=== PATIENT | female | born 1945 | race Caucasian/White ===

== ENCOUNTER → 2020-07-21 | Outpatient (CLI) | payer MEDICARE, OTHER | LOC: MC.RAD 13:30 | DX: Z12.31 Encounter for screening mammogram for malignant neoplasm of breast (principal) ==

== ENCOUNTER 2021-06-14 10:04 | Inpatient (IN) | payer MEDICARE, OTHER ==
[~2021-06-14] VITALS: Ht 167.6 cm; Wt 65.9 kg
[2021-06-14 11:02] LABS: BASO % 0.5 % (0.0-2.0); EOS # 0.2 K/mm3 (0.0-0.7); EOS % 1.9 % (0.0-4.0); GRAN # 6.8 K/mm3 (1.4-6.5); GRAN % 82.6 % (42.2-75.2); HEMOGLOBIN 11.6 g/dl (12.5-16.0); LYMPH # 0.6 K/mm3 (1.2-3.4); LYMPH % 7.4 % (20.0-51.0); MEAN CELL VOLUME 90 fl (80.0-100.0); MEAN CORPUSCULAR HEMOGLOBIN 30 pg (27-31); MEAN CORPUSCULAR HGB CONC 33 g/dl (33.0-37.0); MEAN PLATELET VOLUME 9.8 fl (7.4-10.4); MONO # 0.6 K/mm3 (0.1-0.6); MONO % 7.2 % (1.7-9.3); PLATELET COUNT 227 K/mm3 (130-400); RED BLOOD COUNT 3.93 M/mm3 (4.10-5.30); REDCELL DISTRIBUTION WIDTH-CV 12.8 % (11.5-14.5)
[2021-06-14 11:05] LABS: HEMATOCRIT 35.4 % (37.0-47.0)
[2021-06-14 11:13] LABS: ALBUMIN 2.9 gm/dL (3.4-4.8); BILIRUBIN,TOTAL 0.6 mg/dL (0.2-1.2); C-REACTIVE PROTEIN 19.53 mg/dL (0.00-0.50); CALCIUM 9.2 mg/dL (8.4-10.2); CREATININE, serum 0.72 mg/dL (0.57-1.11); POTASSIUM 3.7 mmol/L (3.5-4.5); TOTAL PROTEIN 6.6 gm/dL (6.2-8.1)
[2021-06-14 13:25] VITALS: BP 102/62; PULSE 73; TEMP 98
[2021-06-14] MEDS ORDERED: ALEVE 220MG220 MG PO (13:32)
[2021-06-14] MEDS ORDERED: ALBUTEROL0.83 MG/ML IH (13:34)
[2021-06-14] MEDS ORDERED: PULMICORT0.5 MG/2 M IH (13:35)
[2021-06-14] MEDS ORDERED: TESSALON PERLE200 MG PO (13:35)
[2021-06-14 13:55] VITALS: BP 101/32; PULSE 75; TEMP 98.4
--- NOTE | 2021-06-14 14:02 | NUR ---
Patient admitted to room 308 from ED. Report recieved from ELHAM Gan. Upon initial assessment, patient requiring 2L of O2 via nasal cannula. Patient unable to take deep breaths without a persistant cough. VSS. Patient A&O. No skin issues noted. Admission paperwork completed. Medications, allergies, and pharmacy reviewed. Patient denies any pain, discomfort, or further needs at this time. Call light in reach. , Daniel, at the bedside.
[2021-06-14 16:00] VITALS: BP 107/44; PULSE 75; TEMP 97.8
--- NOTE | 2021-06-14 19:55 | NUR ---
Scheduled medications given. VSS. Patient A&O. Currently requiring 2L of O2 via nasal cannula. PRN tylenol given for a headache. Patient denies any further pain, discomfort, or further needs at this time. Call light in reach.
[2021-06-14 20:36] VITALS: BP 97/47; PULSE 87; TEMP 99.1
--- NOTE | 2021-06-14 21:50 | NUR ---
ALERT AND OX4. DENIES SOA UNLESS AMBULATING AND CONT TO HAVE COUGH. PM MEDS GIVEN. PRN DISCUSSED FOR COUGH. TYL RELIEVED KENT. POC DISCUSSED. CALL LIGHT WI REACH.
[2021-06-15] VITALS (7 sets, daily range): BP systolic 87–117; BP diastolic 33–59; PULSE 65–107; TEMP 97.7–98.7
[2021-06-15 06:26] LABS: HEMOGLOBIN 10.6 g/dl (12.5-16.0); MEAN CELL VOLUME 89 fl (80.0-100.0); MEAN CORPUSCULAR HEMOGLOBIN 30 pg (27-31); MEAN CORPUSCULAR HGB CONC 33 g/dl (33.0-37.0); MEAN PLATELET VOLUME 9.9 fl (7.4-10.4); PLATELET COUNT 225 K/mm3 (130-400); RED BLOOD COUNT 3.58 M/mm3 (4.10-5.30); REDCELL DISTRIBUTION WIDTH-CV 12.5 % (11.5-14.5)
[2021-06-15 06:46] LABS: CALCIUM 8.4 mg/dL (8.4-10.2); CREATININE, serum 0.64 mg/dL (0.57-1.11); MAGNESIUM 2.3 mg/dL (1.6-2.6)
[2021-06-15 07:44] LABS: BAND 1 % (0-10); LYMPHOCYTE 4 % (20.0-51.0); NEUTROPHILS 92 % (42.0-75.2); PLATELET ESTIMATE NORMAL (NORMAL)
--- NOTE | 2021-06-15 09:22 | NUR ---
PT SITTING UP IN BED. MORNING MEDICATIONS ADMINISTERED BY [employer] WORK[employer]. SHIFT ASSESSMENT COMPLETED. COARSE CRACKLES AUSCULTATED IN LUNGS. PT DENIES ANY PAIN EXCEPT WHEN COUGHING. STATES COUGHING IS EXACERBATED WITH TALKING. DENIES NEEDS AT THIS TIME. NS INFUSING AT 75ML/HR. EDUCATED PT ON IS USE. WILL CONTINUE TO MONITOR.
--- NOTE | 2021-06-15 10:23 | NUR ---
[place] attended clinical rounds with the team. Patient did not feel she needed PT/OT at this time. SW met with patient to discuss discharge planning. Patient lives in [place] with her , Daniel (ph#[phone]). Patient currently sees Dr. Chavez for primary care but advised she plans to change providers at time of discharge. Patient is working on getting the name of the PCP she wants to change to. Patient obtains medications from [facility] with no difficulties. Patient does not currently use home oxygen but reports she will likely need it at discharge. Patient would like to use [facility] if she needs it. Patient does not use any other DME and is independent with ADLS. Patient states she has [facility]PO[facility] which designates her as primary then Bill and Arabella Lieberman as alternates. Patient plans to return home at time of discharge. Discharge Plan: Home
--- NOTE | 2021-06-15 13:51 | NUR ---
Primary nurse was assisted with [phone] patient care by [employer] [employer] [facility] Kaleigh Ch and [employer] instructor Elena Petit MSN, RN.
[2021-06-15 16:29] LABS: PROCALCITONIN 0.15 ng/mL (0.00-0.09)
--- NOTE | 2021-06-15 16:33 | NUR ---
PT MOVED TO SURGICAL SIDE, PT VERY SOB WITH COUGH, PULSE O2 AT 84% ON RA BUT INC TO 90% ONCE COUGHING STOPPED. RT NOTIFIED, LEFT ON RA AT THIS TIME, PT STATED SHE WOULD CALL ON THE CALL LIGHT IF SOB INCREASES
--- NOTE | 2021-06-15 16:46 | NUR ---
This RN took over care of the patient from ELHAM Pruitt.
--- NOTE | 2021-06-15 19:16 | NUR ---
RECEIVED CHANGE OF SHIFT REPORT FROM DAY SHIFT RN.
--- NOTE | 2021-06-16 02:31 | NUR ---
PATIENT RESTING, BREATHING NONLABORED AND EVEN.
[2021-06-16 04:17] VITALS: BP 94/45; PULSE 72; TEMP 98.8
[2021-06-16 05:35] LABS: ARTERIAL BLD GAS O2 SATURATION 93.5 % (92-100); ARTERIAL BLOOD GAS BASE EXCESS -2.1 (-2-2); ARTERIAL BLOOD GAS PCO2 34.7 mmHg (35-45); ARTERIAL BLOOD GAS PO2 63.5 mmHg (80-100); ARTERIAL BLOOD GAS pH 7.42 (7.35-7.45)
--- NOTE | 2021-06-16 06:58 | NUR ---
CHANGE OF SHIFT REPORT GIVEN TO DAY SHIFT RNs, MARIALUISA.
[2021-06-16 08:00] VITALS: BP 100/48; PULSE 90; TEMP 98.5
[2021-06-16 11:48] VITALS: BP 109/50; PULSE 90; TEMP 100.3
--- NOTE | 2021-06-16 14:38 | NUR ---
[employer] contacted Alejandra Barlow and faxed clinical information incase patient discharges over the weekend. Discharge Plan: Home, possible home oxygen
[2021-06-16 15:25] VITALS: BP 104/52; PULSE 87; TEMP 98.9
--- NOTE | 2021-06-16 18:34 | NUR ---
Pt rested in bed after arriving to room. She reported a persistent headache caused by increased coughing. Discussed POC with patient as far as medication administration for headaches. Pt denied any chest pain/palpitations. Remains on Amio infusion. Isolation precautions in place.
--- NOTE | 2021-06-16 18:35 | NUR ---
Pt finished shift on 5L O2 via NC. Continues to have persistent cough, PRN meds administered. Pain improved with one dose of Naproxen. IVF infusing into RFA. POC discussed with her, all questions answered. Call light within reach.
[2021-06-16 19:12] LABS: C-ANCA 11 U/mL (0-99)
[2021-06-16 19:38] VITALS: BP 99/42; PULSE 99; TEMP 98
--- NOTE | 2021-06-16 20:50 | NUR ---
Pt. sitting up in bed. Pt. is A&OX3, assessment complete. IV to rt. forearm patent, IV fluids infusing per orders. Pt. requests cough syrup at this time. giving per orders. Pt. denies further needs, call light within reach.
[2021-06-16 23:54] VITALS: BP 104/56; PULSE 77; TEMP 97.8
[2021-06-17 03:40] VITALS: BP 105/53; PULSE 72; TEMP 98.2
[2021-06-17 07:30] VITALS: BP 106/64; PULSE 71; TEMP 97.9
[2021-06-17 12:05] VITALS: BP 119/56; PULSE 81; TEMP 97.5
[2021-06-17 13:33] LABS: C-REACTIVE PROTEIN 10.15 mg/dL (0.00-0.50); LACTATE DEHYDROGENASE 481 U/L (125-220)
[2021-06-17 13:42] LABS: TROPONIN-I < 0.010 ng/mL (0.00-0.033)
[2021-06-17 13:58] LABS: ANGIOTENSIN CONVERTING ENZYME 31 U/L (16 - 85)
[2021-06-17 15:56] VITALS: BP 104/49; PULSE 83; TEMP 98
[2021-06-17 19:51] VITALS: BP 108/59; PULSE 78; TEMP 98.1
--- NOTE | 2021-06-17 21:20 | NUR ---
PT IN BED. HS MEDS GIVEN INCLUDING ROBITUSSIN/CODEINE 10CC PO AT THIS TIME. HAS OXYGEN AT 10L/HI THANIA, RT IN AND PLACES PT ON 10L OXYMASK. PT HAS INT TO RFA, IV LASIX GIVEN. SPUTUM SPECIMEN COLLECTED AT THIS TIME. PT IS ALERT AND ORIENTED X4.
--- NOTE | 2021-06-17 21:25 | NUR ---
OBTAINED SPUTUM SPECIMEN, SENT TO LAB.
[2021-06-17 23:40] VITALS: BP 112/47; PULSE 95; TEMP 98.5
--- NOTE | 2021-06-18 01:19 | NUR ---
PT AWAKENED FOR IV MED AND COUGH MED. HAS BEEN USING BSC FOR LESS RESPIRATORY DISTRESS.
--- NOTE | 2021-06-18 03:30 | NUR ---
RT CHANGES PT TO 10L/HI THANIA NC FOR PT COMFORT, RB91=60-80%.
[2021-06-18 04:07] VITALS: BP 117/62; PULSE 77; TEMP 99.1
--- NOTE | 2021-06-18 05:50 | NUR ---
PT IN BED, LAYING PRONE. AWAKENED FOR SCHEDULED AM MED AND PRN COUGH SYRUP, TAKES WITHOUT PROBLEM.
[2021-06-18 08:00] VITALS: BP 93/46; PULSE 78; TEMP 96.3
[2021-06-18 12:00] VITALS: BP 105/46; PULSE 83; TEMP 97.7
[2021-06-18 15:55] VITALS: BP 108/70; PULSE 79; TEMP 99.1
[2021-06-18 19:31] VITALS: BP 120/45; PULSE 72; TEMP 98.6
--- NOTE | 2021-06-18 19:56 | NUR ---
TX GIVEN VIA MOUTHPIECE, DUONEB AND PULMICORT AFTER. TOLERATED WELL. [facility]
--- NOTE | 2021-06-18 21:00 | NUR ---
PT IN BED, HAS AIRVO AT 45L/73%, PT REPORTS BETTER BREATHING AND LESS COUGHING. TAKES HS MEDS WITHOUT PROBLEM. INT TO RFA. ARVIZU TO BSD WITH YELLOW URINE.
--- NOTE | 2021-06-18 23:00 | NUR ---
IV SOLUMEDROL GIVEN, SITE PAINFUL WITH ADMINISTRATION, REMAINS BRUISED. PT RESTING BETTER ON AIRVO.
[2021-06-18 23:29] VITALS: BP 104/51; PULSE 72; TEMP 98.6
[2021-06-19 03:37] VITALS: BP 110/57; PULSE 63; TEMP 98.2
--- NOTE | 2021-06-19 04:00 | NUR ---
PT ASKING FOR COUGH MED, ROBITUSSIN W/CODEINE GIVEN. NEW IV SITE STARTED TO LEFT HAND ON SECOND ATTEMPT. DC'D INT TO RFA, SORE AND PAINFUL.
--- NOTE | 2021-06-19 05:30 | NUR ---
SOLUMEDROL GIVEN WITHOUT COMPLAINT OF PAIN OR BURNING. LAB IN TO DRAW. GOOD URINE OUTPUT THIS SHIFT.
[2021-06-19 06:57] LABS: C-REACTIVE PROTEIN 3.32 mg/dL (0.00-0.50); CALCIUM 7.7 mg/dL (8.4-10.2); CREATININE, serum 0.63 mg/dL (0.57-1.11); MAGNESIUM 2.5 mg/dL (1.6-2.6); MEAN CELL VOLUME 89 fl (80.0-100.0); MEAN CORPUSCULAR HEMOGLOBIN 30 pg (27-31); MEAN CORPUSCULAR HGB CONC 33 g/dl (33.0-37.0); MEAN PLATELET VOLUME 10.1 fl (7.4-10.4); PLATELET COUNT 272 K/mm3 (130-400); POTASSIUM 3.7 mmol/L (3.5-4.5); RED BLOOD COUNT 3.38 M/mm3 (4.10-5.30); REDCELL DISTRIBUTION WIDTH-CV 12.8 % (11.5-14.5)
[2021-06-19 07:04] LABS: HEMATOCRIT 30.1 % (37.0-47.0)
[2021-06-19 07:48] LABS: BAND 11 % (0-10); LYMPHOCYTE 3 % (20.0-51.0); NEUTROPHILS 85 % (42.0-75.2); PLATELET ESTIMATE NORMAL (NORMAL)
[2021-06-19 08:00] VITALS: BP 101/82; PULSE 70; TEMP 98.3
[2021-06-19 12:00] VITALS: BP 120/70; PULSE 70; TEMP 98.2
[2021-06-19 15:40] VITALS: BP 108/74; PULSE 70; TEMP 98.4
--- NOTE | 2021-06-19 19:03 | NUR ---
PT EATING, REQUESTED I COME BACK LATER.
[2021-06-19 19:47] VITALS: BP 104/49; PULSE 84; TEMP 98.4
[2021-06-19 23:50] VITALS: BP 100/47; PULSE 69; TEMP 98.1
[2021-06-20 04:00] VITALS: BP 118/61; PULSE 60; TEMP 98
[2021-06-20 07:30] VITALS: BP 114/68; PULSE 58; TEMP 98.5
--- NOTE | 2021-06-20 07:30 | NUR ---
Assessment completed and documented in computer. AirVo set to 45L @ 55% - Pt tolerating well. Denies c/o dyspnea, but does have a chronic productive cough. SPO2 was noted to drop to 88-89% during conversation, but returns to normal once done speaking. SoluMedrol infusing at 250mL/hr, IV site to left hand is CDI with no signs of infiltration. No c/o or concerns at this time.
--- NOTE | 2021-06-20 09:00 | NUR ---
DR and Resp. Therapy in to see pt, AirVo is lowered to 45L @ 45% - pt is tolerating well.
[2021-06-20 09:13] LABS: MEAN CELL VOLUME 88 fl (80.0-100.0); MEAN CORPUSCULAR HGB CONC 34 g/dl (33.0-37.0); MEAN PLATELET VOLUME 9.6 fl (7.4-10.4); PLATELET COUNT 316 K/mm3 (130-400); RED BLOOD COUNT 4.15 M/mm3 (4.10-5.30); REDCELL DISTRIBUTION WIDTH-CV 12.5 % (11.5-14.5)
[2021-06-20 09:17] LABS: HEMATOCRIT 36.7 % (37.0-47.0); MEAN CORPUSCULAR HEMOGLOBIN 30 pg (27-31)
[2021-06-20 09:20] LABS: HEMOGLOBIN 12.3 g/dl (12.5-16.0)
[2021-06-20 09:30] LABS: CREATININE, serum 0.7 mg/dL (0.57-1.11); POTASSIUM 3.1 mmol/L (3.5-4.5)
[2021-06-20 09:31] LABS: BAND 6 % (0-10)
[2021-06-20 09:32] LABS: LYMPHOCYTE 3 % (20.0-51.0); NEUTROPHILS 89 % (42.0-75.2); PLATELET ESTIMATE NORMAL (NORMAL)
--- NOTE | 2021-06-20 10:07 | NUR ---
Received report from day shift. Patient alert and oriented, resting in bed. VSS. Assessment performed. Morning meds administered. Patient has a dry, unproductive cough. Camejo in place to DD. Patient denies pain at this time. Patient resting in bed with call light within reach.
[2021-06-20 11:19] VITALS: BP 87/46; PULSE 70; TEMP 98.4
--- NOTE | 2021-06-20 14:40 | NUR ---
Physician recommending placement to [facility]. Substance Abuse Therapist faxed referral packet with clinical information. PT/OT consultation requested, will be faxed over to [facility] when completed. *Discharge plan: LTAC placement pending*
[2021-06-20 15:02] VITALS: BP 98/56; PULSE 70; TEMP 97.8
--- NOTE | 2021-06-20 16:01 | NUR ---
Collaborated with hospitalist team. Patient unable to transfer to [facility] due to being on 45 L of Airvo and is unwilling to be intubated for the transfer. Hospitalist would like a referral sent to [facility]. Contact made gloria Thornton at [facility] who states that he is planning on visiting the hospital on Saturday. He will review the patient's clinical information tonight and talk more about it during his visit.
[2021-06-20 19:43] VITALS: BP 98/65; PULSE 69; TEMP 98.5
--- NOTE | 2021-06-20 19:55 | NUR ---
TX GIVEN VIA MOUTHPIECE, TOLERATED WELL. [facility] 45L/45% DECREASED TO 40L/45% AT THIS TIME.
--- NOTE | 2021-06-20 21:34 | NUR ---
PT IN BED, HAS AIRVO ON. PT REPORTS FEELING BETTER. COUGH LOOSE, ROBITUSSIN W/CODIENE GIVEN PER PT REQUEST. INT TO LEFT HAND, FLUSHES WELL. LUNGS WITH CRACKLES NOTED. ARVIZU TO BSD WITH YELLOW URINE. DENIES PAIN.
[2021-06-20 23:51] VITALS: BP 102/47; PULSE 70; TEMP 98
[2021-06-21 04:04] VITALS: BP 111/56; PULSE 81; TEMP 98.4
--- NOTE | 2021-06-21 04:18 | NUR ---
MEDICATED WITH ROBITUSSIN W/CODEINE FOR COUGH.
[2021-06-21 05:24] LABS: ARTERIAL BLD GAS O2 SATURATION 94.3 % (92-100); ARTERIAL BLD GAS TCO2 CT 30.2; ARTERIAL BLOOD GAS BASE EXCESS 6.1 (-2-2); ARTERIAL BLOOD GAS HCO3 29.1 meq/L (22-26); ARTERIAL BLOOD GAS PCO2 35.9 mmHg (35-45); ARTERIAL BLOOD GAS PO2 64.1 mmHg (80-100); ARTERIAL BLOOD GAS pH 7.53 (7.35-7.45)
[2021-06-21 06:01] LABS: HEMOGLOBIN 10.8 g/dl (12.5-16.0); MEAN CELL VOLUME 90 fl (80.0-100.0); MEAN CORPUSCULAR HEMOGLOBIN 30 pg (27-31); MEAN CORPUSCULAR HGB CONC 33 g/dl (33.0-37.0); PLATELET COUNT 298 K/mm3 (130-400); REDCELL DISTRIBUTION WIDTH-CV 12.4 % (11.5-14.5)
[2021-06-21 06:09] LABS: HEMATOCRIT 32.3 % (37.0-47.0)
[2021-06-21 06:43] LABS: C-REACTIVE PROTEIN 0.87 mg/dL (0.00-0.50); CREATININE, serum 0.66 mg/dL (0.57-1.11); POTASSIUM 3.9 mmol/L (3.5-4.5)
[2021-06-21 07:00] LABS: BAND 4 % (0-10); LYMPHOCYTE 3 % (20.0-51.0); METAMYELOCYTE 1 % (0-0); NEUTROPHILS 90 % (42.0-75.2)
[2021-06-21 07:15] VITALS: BP 129/63; PULSE 62; TEMP 98.3
[2021-06-21 07:46] LABS: PLATELET ESTIMATE NORMAL (NORMAL)
--- NOTE | 2021-06-21 09:24 | NUR ---
Received report from day shift. A&Ox4. VSS. Denies pain, chest pain or SOB. AM meds administered. Patient eating breakfast with call light near.
--- NOTE | 2021-06-21 10:02 | NUR ---
Assessment completed and charted in computer. AirVo set to 40L @ 45% and pt tolerates well. Frequent cough noted, exacerbated by talking or movement. Pt states it sometimes productive. Lungs are bilaterally CTA. INT to left hand shows no signs of infiltration. Camejo to dependent drainage with clear yellow urine. Pt eats 100% of breakfast and requests time to be alone d/t concerns of being moved to a new facility. Questions were answered and will call and speak to her now regarding transfer. Side rails up x2, and call light in reach.
[2021-06-21 10:48] VITALS: BP 110/45; PULSE 73; TEMP 98.9
--- NOTE | 2021-06-21 14:51 | NUR ---
Message received from Norberto at [facility] he had spoken with the patient and her Daniel. Met with patient who states that she agrees to go to [facility] Her main concern is if insurance would take care of it and that it was a clean facility. I informed the patient of the process and that EMS would transport. All other questions and concerns answered. Notified Norberto that i followed up with the patient and he is hoping to have a bed open tomorrow. Notified hospitalist team of acceptance and that Norberto was hoping to have a bed open tomorrow. Discharge plan: [facility]-
[2021-06-21 15:22] VITALS: BP 104/57; PULSE 68; TEMP 98.3
--- NOTE | 2021-06-21 18:15 | NUR ---
Patient has had an uneventful shift. Patient was removed from Airvo and put on 11L NC. Patient has chaocn to DD without great output. Patient denies any pain at this time. Report given to trim carpenter.
--- NOTE | 2021-06-21 22:31 | NUR ---
PT IN BED, ON HI THANIA N/C AT 9L. INT TO LEFT HAND FLUSHES WELL. PT REPORTS SHE WILL BE GOING TO [facility] FOR CONTINUED CARE. ARVIZU PATENT WITH YELLOW URINE. ROBITUSSIN W/CODEINE GIVEN FOR NPC.
[2021-06-21 23:02] VITALS: BP 111/51; PULSE 61; TEMP 98.1
[2021-06-22 03:14] VITALS: BP 102/33; PULSE 58; TEMP 97.9
--- NOTE | 2021-06-22 05:55 | NUR ---
PT ASKING FOR COUGH MED. SCHEDULED AM MEDS GIVEN INCLUDING ROBITUSSIN W/CODEINE. INT TO LEFT HAND FLUSHES WELL, SOLUMEDROL GIVEN.
[2021-06-22 06:36] LABS: HEMOGLOBIN 11.3 g/dl (12.5-16.0); MEAN CELL VOLUME 90 fl (80.0-100.0); MEAN CORPUSCULAR HEMOGLOBIN 29 pg (27-31); MEAN CORPUSCULAR HGB CONC 33 g/dl (33.0-37.0); MEAN PLATELET VOLUME 10.2 fl (7.4-10.4); PLATELET COUNT 296 K/mm3 (130-400); RED BLOOD COUNT 3.84 M/mm3 (4.10-5.30); REDCELL DISTRIBUTION WIDTH-CV 12.6 % (11.5-14.5)
[2021-06-22 06:39] LABS: HEMATOCRIT 34.5 % (37.0-47.0)
[2021-06-22 06:44] LABS: CALCIUM 7.5 mg/dL (8.4-10.2); CREATININE, serum 0.63 mg/dL (0.57-1.11)
[2021-06-22 07:06] LABS: BAND 10 % (0-10); LYMPHOCYTE 6 % (20.0-51.0); METAMYELOCYTE 3 % (0-0); NEUTROPHILS 75 % (42.0-75.2); PLATELET ESTIMATE NORMAL (NORMAL)
[2021-06-22 07:37] VITALS: BP 107/60; PULSE 57; TEMP 98.5
--- NOTE | 2021-06-22 10:48 | NUR ---
AKUA touched base with Norbreto at [facility]. Notified him that the patient is ready for discharge and is down to 5L of NC oxygen. Norberto states that he is working on getting a bed open for the patient at this time.
[2021-06-22 11:49] VITALS: BP 101/44; PULSE 66; TEMP 98.4
[2021-06-22 16:11] VITALS: BP 108/56; PULSE 60; TEMP 97.9
--- NOTE | 2021-06-22 18:19 | NUR ---
PATIENT HAD AN UNEVENTFUL SHIFT. PATIENT TOLERATED AM MEDS WELL. OXYGEN LOWERED TO 7L PER NC. PATIENT RESTING IN BED WITH CALL LIGHT NEAR.
--- NOTE | 2021-06-22 19:16 | NUR ---
RECEIVED CHANGE OF SHIFT REPORT FROM DAY SHIFT RN. PATIENT EATING SUPPER STILL DURING REPORT. DENIES ANY NEEDS AT THIS TIME. CONTINUES ON OXYGEN.
[2021-06-22 20:00] VITALS: BP 102/47; PULSE 71; TEMP 98.3
--- NOTE | 2021-06-22 23:02 | NUR ---
PATIENT DENIES CHEST PAIN/SOA SO FAR THIS SHIFT, CONTINUES WITH INTERMITTENT COUGH, DENIES NEED FOR COUGH MEDICINE. INT IN PLACE TO LEFT HAND. OXYGEN CONTINUES PER HIGH FLOW NASAL CANNULA.
[2021-06-23] VITALS: BP 88/40; PULSE 72; TEMP 98.6
[2021-06-23 04:30] VITALS: BP 99/49; PULSE 66; TEMP 97.7
--- NOTE | 2021-06-23 07:07 | NUR ---
CHANGE OF SHIFT REPORT GIVEN TO DAY SHIFT RNPAT.
[2021-06-23 08:00] VITALS: BP 105/50; PULSE 66; TEMP 97.6
[2021-06-23 08:08] LABS: .HISTOPLASMA ANTIGEN SERUM None Detected (())
[2021-06-23 11:15] VITALS: BP 111/54; PULSE 66; TEMP 98.1
[2021-06-23] MEDS ORDERED: IPRATROPIUM BROM3 M1 IH ×2 (11:55→11:56)
[2021-06-23] MEDS ORDERED: DIFLUCAN 100MG100 MG PO (11:55)
[2021-06-23] MEDS ORDERED: LASIX 20MG TABL20 MG PO (11:56)
[2021-06-23] MEDS ORDERED: NAPROSYN 2250 MG/TAB PO (11:56)
[2021-06-23] MEDS ORDERED: TYLENOL 325MG325 MG PO (11:56)
[2021-06-23] MEDS ORDERED: LOVENOX 4040 MG/0.4 SQ (11:56)
[2021-06-23] MEDS ORDERED: ROBITUSSIN A-C S1 M1 PO (11:57)
[2021-06-23] MEDS ORDERED: MIRALAX PA17 GM/Dose PO (11:57)
[2021-06-23] MEDS ORDERED: HALLS9.1 MG MM (11:57)
[2021-06-23] MEDS ORDERED: PROTONIX 40MG T40 MG PO (11:58)
[2021-06-23] MEDS ORDERED: ZOFRAN INJ4 MG/2 ML IV (11:58)
[2021-06-23] MEDS ORDERED: SOLU-MEDRO40 MG/VIA1 IV (11:58)
--- NOTE | 2021-06-23 14:29 | NUR ---
SW contacted by Norberto at [facility]. Patient accepted for transfer today. Patient accepted to room 104 ([phone]) by at the [place] location. [facility] contacted and arrangement made for the patient to be picked up for transfer at 1830. Patient, her Daniel and RN all notified of the above. Attending physician notified and provided receiving physicians information. Patients completed and signed EMS forms , placed on the front of her chart. Discharge plan: [facility],[place] @1830
[2021-06-23 15:55] VITALS: BP 110/56; PULSE 74; TEMP 98
--- NOTE | 2021-06-23 17:26 | NUR ---
TRANSPORTATION ARRANGED FOR 1829, REPORT GIVEN TO NURSE RECEIVING PATIENT AT [facility].
--- NOTE | 2021-06-23 18:43 | NUR ---
PT PICKED UP BY EMS TO TRANSFER TO [facility] IN . IV REMOVED WITH NO COMPLICATIONS, CATHETER INTACT. PT D/C WITH ARVIZU CATHETER. ALL BELONGINGS SENT WITH PATIENT AND SPOUSE.
[2021-06-25 10:38] LABS: COCCIDIOIDES AB IGG Negative (Negative); COCCIDIOIDES AB IGM Negative (Negative)
== END 2021-06-23 18:46 | DRG 193 ==
LOC: COL.ER 10:04 → MEDICAL 12:12 → SURG 06-15 16:17
PROVIDERS: Family Medicine; Internal Medicine Pulmonary Disease; Physician Assistant; ADMIT Internal Medicine
PROC: 5A0935A Assistance with Respiratory Ventilation, Less than 24 Consecutive Hours, High Flow/Velocity Cannula (ICD-10-PCS; principal; 2021-06-17)
DX: J18.9 Pneumonia, unspecified organism (principal); J96.01 Acute respiratory failure with hypoxia; K59.00 Constipation, unspecified; D72.829 Elevated white blood cell count, unspecified; T38.0X5A Adverse effect of glucocorticoids and synthetic analogues, initial encounter; Z66 Do not resuscitate; B94.8 Sequelae of other specified infectious and parasitic diseases
CPT/HCPCS: 99223-AI; 99232-AI; 99233-AI; 99239; A4314; A9284; J1650; J1940; J2405; J2920; J2930; J7030; J7040; J7060; J7512; Q9967

== ENCOUNTER 2021-09-10 02:34 | Emergency (ER) | payer MEDICARE, OTHER ==
[~2021-09-10] VITALS: Ht 167.6 cm; Wt 65.9 kg
[~2021-09-10 02:34] MED LIST: ALBUTEROL0.83 MG/ML IH; ALEVE 220MG220 MG PO; DIFLUCAN 100MG100 MG PO; HALLS9.1 MG MM; IPRATROPIUM BROM3 M1 IH; LASIX 20MG TABL20 MG PO; LOVENOX 4040 MG/0.4 SQ; MIRALAX PA17 GM/Dose PO; NAPROSYN 2250 MG/TAB PO; PROTONIX 40MG T40 MG PO; PULMICORT0.5 MG/2 M IH; ROBITUSSIN A-C S1 M1 PO; SOLU-MEDRO40 MG/VIA1 IV; TESSALON PERLE200 MG PO; TYLENOL 325MG325 MG PO; ZOFRAN INJ4 MG/2 ML IV
[2021-09-10 02:44] VITALS: TEMP 98
[2021-09-10] MEDS ORDERED: NYSTATIN OR100 MU/ML PO (02:50)
[2021-09-10] MEDS ORDERED: TRELEGY ELLIPT1 EACH IH (02:50)
[2021-09-10 03:01] LABS: BASO # 0.1 K/mm3 (0.0-0.2); BASO % 0.5 % (0.0-2.0); EOS # 0.1 K/mm3 (0.0-0.7); EOS % 1.2 % (0.0-4.0); GRAN # 9.5 K/mm3 (1.4-6.5); GRAN % 84.3 % (42.2-75.2); LYMPH # 0.7 K/mm3 (1.2-3.4); LYMPH % 6.4 % (20.0-51.0); MEAN CELL VOLUME 91 fl (80.0-100.0); MEAN CORPUSCULAR HEMOGLOBIN 30 pg (27-31); MEAN CORPUSCULAR HGB CONC 33 g/dl (33.0-37.0); MEAN PLATELET VOLUME 10.5 fl (7.4-10.4); MONO # 0.8 K/mm3 (0.1-0.6); MONO % 7.2 % (1.7-9.3); PLATELET COUNT 213 K/mm3 (130-400); RED BLOOD COUNT 4.31 M/mm3 (4.10-5.30); REDCELL DISTRIBUTION WIDTH-CV 14.4 % (11.5-14.5)
[2021-09-10 03:22] LABS: ALBUMIN 3.6 gm/dL (3.4-4.8); BILIRUBIN,TOTAL 0.9 mg/dL (0.2-1.2); CALCIUM 9.6 mg/dL (8.4-10.2); CREATININE, serum 0.74 mg/dL (0.57-1.11); POTASSIUM 4.6 mmol/L (3.5-4.5); TOTAL PROTEIN 6.7 gm/dL (6.2-8.1)
[2021-09-10 03:56] LABS: COLLECTION METHOD CLEAN CATCH
[2021-09-10 04:02] LABS: PH 6 (5-8); SQUAMOUS EPITHELIAL None Seen /hpf (0-10); URINE APPEARANCE Clear (CLEAR/HAZY); URINE BACTERIA None Seen /hpf (NONE SEEN); URINE BILIRUBIN Negative (NEGATIVE); URINE BLOOD Negative (NEGATIVE); URINE COLOR Yellow (YELLOW); URINE GLUCOSE Negative (NEGATIVE); URINE KETONE Negative (NEGATIVE); URINE LEUKOCYTE ESTERASE Negative (NEGATIVE); URINE NITRATE Negative (NEGATIVE); URINE PROTEIN(semi-quant) Negative (NEGATIVE); URINE RBC 0-2 /hpf (0-2); URINE UROBILINOGEN >=4.0 (NEGATIVE)
[2021-09-10 05:39] VITALS: BP 119/64; PULSE 77
== END 2021-09-10 05:39 | disposition home or self-care (01) ==
LOC: COL.ER 02:34
PROVIDERS: Emergency Medicine
DX: K59.00 Constipation, unspecified (principal); D72.829 Elevated white blood cell count, unspecified
CPT/HCPCS: J1885; J2270; J2405; J7040; Q9967

== ENCOUNTER 2021-09-14 16:33 | Emergency (ER) | payer MEDICARE, OTHER ==
[~2021-09-14] VITALS: Ht 167.6 cm; Wt 68.2 kg
[~2021-09-14 16:33] MED LIST changes: +NYSTATIN OR100 MU/ML PO; +TRELEGY ELLIPT1 EACH IH
[2021-09-14 17:16] LABS: COLLECTION METHOD CLEAN CATCH
[2021-09-14 17:21] LABS: HEMATOCRIT 38.5 % (37.0-47.0); HEMOGLOBIN 12.6 g/dl (12.5-16.0); MEAN CELL VOLUME 92 fl (80.0-100.0); MEAN CORPUSCULAR HEMOGLOBIN 30 pg (27-31); MEAN CORPUSCULAR HGB CONC 33 g/dl (33.0-37.0); MEAN PLATELET VOLUME 9.9 fl (7.4-10.4); PLATELET COUNT 285 K/mm3 (130-400)
[2021-09-14 17:24] LABS: MUCOUS Present (NOT PRESENT); PH 6 (5-8); SQUAMOUS EPITHELIAL 0-2 /hpf (0-10); URINE APPEARANCE Clear (CLEAR/HAZY); URINE BACTERIA None Seen /hpf (NONE SEEN); URINE BILIRUBIN Negative (NEGATIVE); URINE BLOOD 1+ (NEGATIVE); URINE COLOR Yellow (YELLOW); URINE GLUCOSE Negative (NEGATIVE); URINE KETONE Negative (NEGATIVE); URINE LEUKOCYTE ESTERASE Negative (NEGATIVE); URINE NITRATE Negative (NEGATIVE); URINE PROTEIN(semi-quant) Negative (NEGATIVE); URINE RBC 20-50 /hpf (0-2); URINE UROBILINOGEN Negative (NEGATIVE)
[2021-09-14 17:40] LABS: ALBUMIN 3.1 gm/dL (3.4-4.8); BILIRUBIN,TOTAL 0.3 mg/dL (0.2-1.2); CREATININE, serum 0.68 mg/dL (0.57-1.11); POTASSIUM 3.9 mmol/L (3.5-4.5); TOTAL PROTEIN 6.3 gm/dL (6.2-8.1)
[2021-09-14 18:03] LABS: BAND 10 % (0-10); EOSINOPHIL 4 % (0-4); LYMPHOCYTE 25 % (20.0-51.0); NEUTROPHILS 49 % (42.0-75.2)
[2021-09-14 19:22] VITALS: BP 129/68; PULSE 76
== END 2021-09-14 19:25 | disposition home or self-care (01) ==
LOC: COL.ER 16:33
PROVIDERS: Nurse Practitioner Primary Care
DX: K59.00 Constipation, unspecified (principal); R31.9 Hematuria, unspecified
CPT/HCPCS: J7030

== ENCOUNTER → 2021-10-11 | Outpatient (CLI) | payer MEDICARE, OTHER | LOC: COL.VAS 12:08 | DX: I35.0 Nonrheumatic aortic (valve) stenosis (principal) ==

== ENCOUNTER 2022-07-13 09:53 | Emergency (ER) | payer MEDICARE, OTHER ==
[~2022-07-13] VITALS: Ht 167.6 cm; Wt 65.9 kg
[2022-07-13] MEDS ORDERED: MOBIC15 MG PO (10:21)
[2022-07-13] MEDS ORDERED: ULTRAM 50MG TAB50 MG PO (10:22)
[2022-07-13 10:46] LABS: COLLECTION METHOD CLEAN CATCH
[2022-07-13 10:54] LABS: URINE APPEARANCE Clear (CLEAR/HAZY); URINE BLOOD Negative (NEGATIVE); URINE COLOR Yellow (YELLOW); URINE GLUCOSE Negative (NEGATIVE); URINE KETONE 2+ (NEGATIVE); URINE NITRATE Negative (NEGATIVE); URINE PROTEIN(semi-quant) Negative (NEGATIVE); URINE UROBILINOGEN 0.2 E.U/dL (0.2-1.0)
[2022-07-13 10:55] LABS: SQUAMOUS EPITHELIAL 0-2 /hpf (0-10); URINE BACTERIA None Seen /hpf (NONE SEEN); URINE RBC 0-2 /hpf (0-2)
[2022-07-13 11:02] LABS: BASO % 0.7 % (0.0-2.0); EOS # 0.1 K/mm3 (0.0-0.7); EOS % 2.9 % (0.0-4.0); GRAN # 2.8 K/mm3 (1.4-6.5); GRAN % 66.8 % (42.2-75.2); HEMATOCRIT 41.9 % (37.0-47.0); HEMOGLOBIN 13.9 g/dl (12.5-16.0); LYMPH # 0.9 K/mm3 (1.2-3.4); LYMPH % 22.4 % (20.0-51.0); MEAN CELL VOLUME 90 fl (80.0-100.0); MEAN CORPUSCULAR HEMOGLOBIN 30 pg (27-31); MEAN CORPUSCULAR HGB CONC 33 g/dl (33.0-37.0); MEAN PLATELET VOLUME 9.6 fl (7.4-10.4); MONO # 0.3 K/mm3 (0.1-0.6); MONO % 6.7 % (1.7-9.3); PLATELET COUNT 267 K/mm3 (130-400); RED BLOOD COUNT 4.67 M/mm3 (4.10-5.30)
[2022-07-13 11:20] LABS: ALBUMIN 4.5 gm/dL (3.4-4.8); BILIRUBIN,TOTAL 0.5 mg/dL (0.2-1.2); CALCIUM 8.7 mg/dL (8.4-10.2); CREATININE, serum 0.71 mg/dL (0.57-1.11); POTASSIUM 3.9 mmol/L (3.5-4.5); TOTAL PROTEIN 7.7 gm/dL (6.2-8.1)
[2022-07-13] MEDS ORDERED: NORCO 325 MG-51 TAB PO (13:13)
[2022-07-13 13:34] VITALS: BP 136/65; PULSE 62; TEMP 98.3
== END 2022-07-13 13:30 | disposition home or self-care (01) ==
LOC: COL.ER 09:53
PROVIDERS: Physician Assistant
DX: S22.048A Other fracture of fourth thoracic vertebra, initial encounter for closed fracture (principal); S22.078A Other fracture of T9-T10 vertebra, initial encounter for closed fracture; K59.00 Constipation, unspecified; Z86.16 Personal history of COVID-19; X58.XXXA Exposure to other specified factors, initial encounter
CPT/HCPCS: J1885; J2270; J2360; Q9967

== ENCOUNTER 2022-07-23 09:53 | Outpatient (CLI) | payer MEDICARE, OTHER ==
[~2022-07-23] VITALS: Ht 167.6 cm; Wt 68.5 kg
[~2022-07-23 09:53] MED LIST changes: +MOBIC15 MG PO; +NORCO 325 MG-51 TAB PO; +ULTRAM 50MG TAB50 MG PO
[2022-07-23] MEDS ORDERED: FIORICET 325 MG1 TA1 PO (10:54)
[2022-07-23] MEDS ORDERED: NORCO 325 MG-51 TAB PO (10:54)
[2022-07-23] MEDS ORDERED: MOTRIN 200200 MG/TAB PO (11:05)
[2022-07-23] MEDS ORDERED: TYLENOL 325MG325 MG PO (11:05)
[2022-07-23 11:07] VITALS: BP 130/73; PULSE 61; TEMP 98.2
--- NOTE | 2022-07-23 13:25 | NUR ---
Please see merge documentation for record of procedure, vitals and medications administered.
[2022-07-23 14:46] VITALS: BP 128/56; PULSE 63
[2022-07-23 15:00] VITALS: BP 118/59; PULSE 58
[2022-07-23 15:15] VITALS: BP 113/55; PULSE 57
[2022-07-23 15:30] VITALS: BP 111/58; PULSE 60
[2022-07-23 15:45] VITALS: BP 117/56; PULSE 66
--- NOTE | 2022-07-23 16:05 | NUR ---
Dr Lopez in to see pt.OK to discharge home per Dr Lopez at this time.Discharge instructions given to pt.Pt verbalizes understanding.Pt ambulates to BR.
--- NOTE | 2022-07-23 16:26 | NUR ---
Pt escorted out via wheelchair by this nurse.
== END 2022-07-23 16:26 ==
LOC: COL.CAR 09:53
DX: S22.000A Wedge compression fracture of unspecified thoracic vertebra, initial encounter for closed fracture (principal); X58.XXXA Exposure to other specified factors, initial encounter
CPT/HCPCS: J2250; J3010

== ENCOUNTER → 2024-01-09 | Outpatient (CLI) | payer MEDICARE, OTHER ==
[~2024-01-09] VITALS: Ht 167.6 cm; Wt 66.3 kg
[~2024-01-09] MED LIST changes: +Denosumab 60 MG/ML SYRINGE SQ ONE; +FIORICET 325 MG1 TA1 PO; +MOTRIN 200200 MG/TAB PO; +NATURAL MAGNES200 MG PO; +PROLIA60 MG/ML SQ
[2024-01-09 14:15] VITALS: BP 115/51; PULSE 65; TEMP 97.9
== END ==
LOC: EUO 11-27 15:00
DX: M81.0 Age-related osteoporosis without current pathological fracture (principal)
CPT/HCPCS: J0897